=== PATIENT | female | born 1955 | race Hispanic/Latino ===

== ENCOUNTER 2016-04-24 08:15 | Emergency (ER) | payer OTHER ==
[~2016-04-24] VITALS: Ht 157.5 cm; Wt 61.2 kg
[~2016-04-24 08:15] MED LIST: ALEVE220 MG PO; BENTYL 10 MG CA10 MG PO; CIPRO 500MG TA500 MG PO; DOCUSATE SODIU100 MG PO; DULOXETINE HCL60 MG PO; ENDOCET 325 MG-1 TA1 PO; FLU VACCINE 0.0.5 ML IM; JANUMET 500 MG-1 TAB PO; KEFLEX500 M1 PO; LEVEMIR 10100 UNITS/ SC; LYRICA100 M1 PO; MAGIC MOUTHWASH PO; MIRALAX17 GM PO; MORPHINE SULFAT15 M2 PO; NEURONTIN100 MG PO; NOVOLOG100 U/ML SC; OMEPRAZOLE MAGN20 MG PO; OXYCODONE5 M1 PO; PANTOPRAZOLE SO40 M1 PO; PERCOCET 325 MG1 TA2 PO; PERCOCET 5-3251 EACH PO; PRILOSEC 20MG C20 MG PO; PYRIDIUM200 M1 PO; SENOKOT8.6 MG PO; VICODIN 300 MG-1 TAB PO; VICODIN5-300 PO; ZOFRAN 4 MG TABL4 MG PO
[2016-04-24 08:20] VITALS: BP 184/81
--- NOTE | 2016-04-24 09:12 | ED NECK/BACK PAIN COMPLAINT ---
History of Present Illness General Chief Complaint: General Adult Stated Complaint: PER PT SHARP PAIN IN R HAND TO NECK Source: patient Exam Limitations: no limitations Vital Signs & Intake/Output Vital Signs & Intake/Output Vital Signs Date Time Temp Pulse Resp B/P Pulse O2 O2 Flow FiO2 Ox Delivery Rate 04/24 0858 98 04/24 0820 97.6 88 16 184/81 98 Room Air Allergies Coded Allergies: NO KNOWN ALLERGIES (09/25/14) Reconcile Medications Duloxetine HCl 60 MG CAPSULE.DR 1 CAP PO DAILY PAIN (Reported) Insulin Aspart, Recombinant (Novolog) 100 U/ML CARA 0 UNITS SC TIDAC hgih blood sugar BEFORE MEALS FS Units <80 (0) (80-150) (4) (151-200) (6) (201-250) (8) (251-300) (10) (301-350) (12) (351-400) (14) >400 Call Doctor Insulin Detemir (Levemir) 100 UNIT/ML VIAL 8 UNITS SC BID high blood sugar Meloxicam (Mobic) 15 MG TABLET 1 TAB PO DAILY PRN PAIN Methylprednisolone. (Medrol) 4 MG TAB.DS.PK 1 DP PO AD INFLAMMATION 6 on day 1 then reduce by one tablet daily until gone Oxycodone HCl/Acetaminophen (Percocet 5-325 MG Tablet) 1 EACH TABLET 1 TAB PO Q6H PRN PAIN Oxycodone HCl/Acetaminophen (Percocet 5-325 MG Tablet) 5 MG-325 MG TABLET 1 TAB PO TID PRN PAIN Pantoprazole Sodium 40 MG TABLET.DR 1 TAB PO DAILY GI (Reported) Pregabalin (Lyrica) 100 MG CAPSULE 1 CAP PO TID PAIN (Reported) Triage Note: PT STATES THAT FOR THE PAST WEEK SHE HAS BEEN GETTING INTERMITTANT SHOOTING PAINS FROM HER R HAND INTO HER NECK, 4-5 EPISODES A DAY. NO PAIN AT THIS TIME, DENIES CP/SOB Triage Nurses Notes Reviewed? yes Onset: Gradual Duration: intermittent Timing: recent history Location: paraspinous muscles Method of Injury: unknown HPI: Patient is a 61-year-old female who presents emergency room with a one-week history of intermittent right-sided neck and right-sided upper extremity numbness and tingling and "lightning" pain with radiation down the entire right arm. Patient denies any mechanism of injury. Patient has been taken ibuprofen with no relief of symptoms. Denies any headache, fever chills chest pain arm pain jaw pain and facial droop and slurred speech BLURRED vision facial paresthesia Patient states that the pain intermittently has been so severe that has caused patient has dizziness and one episode of vomiting. Patient is able tolerate by mouth Patient is right arm dominant. Patient states that the symptoms of paresthesia and pain have been intermittent states that neck movements make worse (DIEUDONNE BARRIGA) Past History Travel History Traveled to [place] past 21 day No Medical History Any Pertinent Medical History? see below for history Neurological: NONE EENT: NONE Cardiovascular: NONE Respiratory: NONE Gastrointestinal: NONE Hepatic: NONE Renal: NONE Musculoskeletal: NONE Psychiatric: NONE Endocrine: diabetes Blood Disorders: NONE Cancer(s): ABD CA History of MRSA: No History of VRE: No History of CDIFF: No Surgical History Surgical History: cholecystectomy, TONSILLECTOMY CHEMO AND RADIATION Psychosocial History Who do you live with Family What is your primary language Guyanese Tobacco Use: Never used ETOH Use: denies use Illicit Drug Use: denies illicit drug use Family History Hx Contributory? No (DIEUDONNE BARRIGA) Review of Systems Review of Systems Constitutional: Reports: no symptoms. Eyes: Reports: no symptoms. Ears, Nose, Throat, Mouth: Reports: no symptoms. Respiratory: Reports: no symptoms. Cardiovascular: Reports: no symptoms. Gastrointestinal/Abdominal: Reports: see HPI. Musculoskeletal: Reports: see HPI, back pain. Skin: Reports: no symptoms. Neurological/Psychological: Reports: see HPI, paresthesia. All Other Systems: Reviewed and Negative (DIEUDONNE BARRIGA) Physical Exam Physical Exam General Appearance: no apparent distress, alert, comfortable, cachetic Neck: normal inspection Comments: Well-developed well-nourished person in no acute distress HEENT: Normal EENT exam, extraocular motion intact, no nystagmus. Pupils equally round and reactive to light and accommodation. Nose is atraumatic. External auditory canal and Tympanic membranes clear. Pharynx normal. No swelling or edema. Neck: Normal inspection, decreased active range of motion noted, right lateral muscular point tenderness noted Back: Nontender, no CVA tenderness. Cardiovascular: Regular rate and rhythms no murmurs rubs or gallops, normal JVP Respiratory: Chest nontender. No respiratory distress.breath sounds clear to auscultation bilaterally Abdomen: Soft, nontender nondistended, no appreciable organomegaly. Normal bowel sounds. No ascites Extremity: No edema, no calf tenderness to palpation, normal and equal pulses. Bilateral upper extremity myotomes dermatomes DTRs intact Neuro: Alert oriented x3, motor sensory normal, cranial nerves II through XII grossly intact. Corbin's test reproduced pain to the right upper extremity Skin: No appreciable rash on exposed skin, skin is warm and dry. Psych: Mood and affect is normal, memory and judgment is normal. (DIEUDONNE BARRIGA) Progress Differential Diagnosis: AAA, aortic dissection, C spine injury, carotid dissection, cauda equina syn, herniated disc, myofascial strain, pyelo/UTI, sciatica, spinal cord inj, thoracic outlet syn, T/L spine injury, ureterolithiasis, tia, cva, GIANT CELL ARTERITIS, MENINGITIS, CERVICAL RADICULOPATHY, Plan of Care: Orders Procedure Date/time Status EKG 04/24 0824 Active Patient currently is in no apparent distress. Due to history of present illness and exam findings patient has concerns of cervical radiculopathy to the right upper extremity. Patient was neurovascularly intact. Patient was strongly advised to follow with discharge instructions and she had no questions and normal steady gait on discharge (DIEUDONNE BARRIGA) Initial ED EKG: normal p-waves, normal QRS complex, normal sinus rhythm, 78 BPM NORMAL SINUS RHYTHM (DIEUDONNE BARRIGA) Departure Departure Disposition: HOME OR SELF CARE Condition: Stable Clinical Impression Primary Impression: Neck pain Secondary Impressions: Cervical radiculopathy Referrals: ABELINO BRUNO,SHELLY ARNOLD (PCP/Family) Additional Instructions: As discussed begin icing the area directly 20 minutes every 2 hours. Begin the prescription of meloxicam for pain and inflammation and begin the prescription of Percocet for breakthrough pain relief. Begin the prescription of Medrol Dosepak for inflammation. If no better in 3 days follow-up with primary care doctor. If symptoms worsen return to emergency room. Prescriptions are waiting at [facility] Departure Forms: Customer Survey General Discharge Information Prescriptions: Current Visit Scripts Meloxicam (Mobic) 1 TAB PO DAILY PRN PAIN #14 TAB Oxycodone HCl/Acetaminophen (Percocet 5-325 MG Tablet) 1 TAB PO TID PRN PAIN #9 TAB Methylprednisolone. (Medrol) 1 DP PO AD #1 DP 6 on day 1 then reduce by one tablet daily until gone (DIEUDONNE BARRIGA) PA/EMAIL MARKETING ASSISTANT Co-Sign Statement Statement: ED Attending supervision documentation- [] I saw and evaluated the patient. I have also reviewed all the pertinent lab results and diagnostic results. I agree with the findings and the plan of care as documented in the PA's/EMAIL MARKETING ASSISTANT's documentation. [X] I have reviewed the ED Record and agree with the PA's/EMAIL MARKETING ASSISTANT's documentation. [] Additions or exceptions (if any) to the PAs/EMAIL MARKETING ASSISTANT's note and plan are summarized below: [] (BRENNA SILVER DO
[2016-04-24] MEDS ORDERED: MOBIC15 M1 PO (09:14)
[2016-04-24] MEDS ORDERED: PERCOCET 5-3251 EACH PO (09:14)
[2016-04-24] MEDS ORDERED: MEDROL4 M2 PO (09:14)
== END 2016-04-24 09:22 ==
LOC: ERH 08:15
DX: M54.12 Radiculopathy, cervical region (principal); M54.2 Cervicalgia
CPT/HCPCS: 93005; 93010

== ENCOUNTER → 2017-04-05 | Day surgery (SDC) | payer OTHER ==
[~2017-04-05] MED LIST changes: +ASPIRIN EC81 M1 PO; +ATORVASTATIN CA80 M1 PO; +CEPHALEXIN250 M2 PO; +HUMALOG KW100 UNIT/1 SC; +LEVEMIR FL100 UNIT/1 SC; +LISINOPRIL20 M1 PO; +MECLIZINE HCL12.5 M1 PO; +MEDROL4 M2 PO; +MOBIC15 M1 PO; +ZOFRAN ODT4 M1 SL
--- NOTE | 2017-04-05 09:37 | Operative Report ---
Operative/Inv Procedure Report Surgery Date: 04/05/17 Name of Procedure: Cataract extraction with intraocular lens implantation left eye Pre-Operative Diagnosis: Age-related cataract left eye Post-Operative Diagnosis: Same Estimated Blood Loss: none Surgeon/Per Diem Clerk: Ki Saravia MD Anesthesia: local monitored anesthesi Complications: None Operative/Procedure Note Note: Preoperatively the patient was noted to have 20/70 vision in the left eye . The risks, benefits, and alternatives to surgery were discussed at length with the patient. Informed consent was obtained. The patient was brought to the operating room where the left eye was prepped and draped in the normal sterile fashion. A speculum was placed on the left eye with good exposure. The axis of the limbal relaxing incision was marked. Using a aleena blade at 600 depth, an incision spanning 35 degrees was made without complication. A limbal relaxing incision of equal length and depth was made 180 away.A stab incision was made using a paracentesis blade. Intracameral lidocaine was placed. Viscoelastic was used to form the anterior chamber. A clear corneal incision was made using keratome blade. A continuous curvilinear capsulorrhexis was made using a cystotome needle followed by Utrata forceps. There was no extension of the rhexis. Hydrodissection was performed using balanced salt solution. The cataract was removed using a stop and chop technique. Residual cortex was removed using coaxial irrigation and aspiration. The capsule was polished using irrigation and aspiration and the posterior capsule was cleaned using a balanced salt solution jet. There was no residual lens material inside the eye. The capsular bag was reformed using viscoelastic. An intraocular lens PCBOO of power 19.0 was verified and confirmed. It was loaded into an injector and injected into the eye. The lens was placed entirely within the capsular bag. Viscoelastic was evacuated using irrigation and aspiration. The wounds were stromally hydrated and the eye filled to physiologic pressure using balanced salt solution. Intracameral cefuroxime was placed. Speculum was removed and a shield was placed on the eye. The patient was brought to the recovery area without incident. Instructions were given to follow-up the next day for routine postoperative care.
== END ==
LOC: STS 02:34
DX: H25.9 Unspecified age-related cataract (principal); E11.9 Type 2 diabetes mellitus without complications; Z79.4 Long term (current) use of insulin; I10 Essential (primary) hypertension; K21.9 Gastro-esophageal reflux disease without esophagitis
CPT/HCPCS: J2250; V2632